=== PATIENT | male | born 1945 | race Caucasian/White ===

== ENCOUNTER 2016-12-26 07:39 | Day surgery (SDC) | payer OTHER, BC ==
[2016-12-24 12:30] VITALS: BMI 34.4
[2016-12-26] MEDS ORDERED: PROPOFOL 20 ML ONE ×2 (08:03)
[2016-12-26] MEDS ORDERED: LIDOCAINE HCL/PF 2% SDV 5ML VIAL ONE (08:31)
[2016-12-26 09:41] VITALS: TEMP 97.5
[2016-12-26 09:48] VITALS: BP 127/74; PULSE 60
== END 2016-12-26 09:40 | disposition home or self-care (01) ==
LOC: FASU-ENDO 07:39
PROVIDERS: ATTEND Internal Medicine Gastroenterology
PROC: 0DJD8ZZ Inspection of Lower Intestinal Tract, Via Natural or Artificial Opening Endoscopic (ICD-10-PCS; principal; 2016-12-26 08:30)
DX: Z86.010 Personal history of colon polyps (principal); K57.30 Diverticulosis of large intestine without perforation or abscess without bleeding